=== PATIENT | male | born 1950 | race Caucasian/White ===

== ENCOUNTER → 2017-05-19 | Outpatient (CLI) | payer BC ==
[2017-05-19 14:27] LABS: BLOOD UREA NITROGEN 12 mg/dl (7-18); BUN/CREATININE RATIO 13.9 (10-20); CALCIUM 9.4 mg/dl (8.5-10.1); CARBON DIOXIDE 30 mmol/L (21-32); CHLORIDE 104 mmol/L (98-107); CREATININE 0.89 mg/dl (0.60-1.40); GLUCOSE 91 mg/dl (70-99); POTASSIUM 4.1 mmol/L (3.5-5.1); SODIUM 138 mmol/L (136-145)
--- NOTE | 2017-05-25 09:44 | CODING QUERY MEDICAL NECESSITY ---
SUPPORTING DIAGNOSIS NEEDED Dr. Chaparro, A supporting diagnosis is required for the test/procedure performed on this patient in order for us to be reimbursed by the patient's insurance. Please provide a supporting diagnosis for the following test/procedure listed below next to the test name along with your signature. *If there is no additional diagnosis for this patient that would support the following test/procedure please document that below next to the test/procedure. Test(s)/Procedure(s) that require a supporting diagnosis: * [id number] PSA DIAGNOSIS: DATE OF SERVICE: 05/19/17 Provider Signature: Date: Thank you Fadi Mendez [facility] Information Management Once completed, please kindly fax back to [phone] For questions please call [phone]
== END | disposition home or self-care (01) ==
LOC: C.LABMFLN 10:34
PROVIDERS: ATTEND Family Medicine
DX: Z00.00 Encounter for general adult medical examination without abnormal findings (principal); E29.1 Testicular hypofunction; I10 Essential (primary) hypertension; Z12.5 Encounter for screening for malignant neoplasm of prostate

== ENCOUNTER → 2017-06-30 | Outpatient (CLI) | payer BC ==
[2017-06-30 13:25] LABS: BASO % 0.1 %; BASO ABS # 0.01 K/uL (0-0.2); COMPLETE YES; EOS % 0.2 %; HEMATOCRIT 46.5 % (42-52); IG% 0.2 %; LYMPH % 15.8 %; LYMPH ABS # 2.04 K/uL (1.2-3.4); MEAN CELL VOLUME 88.4 fL (80-100); MEAN CORPUSCULAR HEMOGLOBIN 28.9 pg (25-34); MEAN CORPUSCULAR HGB CONC 32.7 g/dl (32-36); MEAN PLATELET VOLUME 10.6 fL (7.4-10.4); MONO % 4.6 %; NEUT % 79.1 %; PLATELET COUNT 274 K/uL (130-400); RED BLOOD COUNT 5.26 M/uL (4.7-6.1); WHITE BLOOD COUNT 12.94 K/uL (4.8-10.8)
[2017-06-30 14:55] LABS: LYME DISEASE AB IGG POS (NEG); LYME DISEASE AB IGM POS (NEG)
[2017-06-30 15:19] LABS: BLOOD UREA NITROGEN 12 mg/dl (7-18); CREATININE 0.92 mg/dl (0.60-1.40)
[2017-06-30 15:30] LABS: THYROID STIMULATING HORMONE 0.581 uIu/ml (0.300-4.500)
[2017-07-05 21:22] LABS: 18KDIGG BAND REACTIVE (NONREACTIVE); 23KDIGG BAND REACTIVE (NONREACTIVE); 23KDIGM BAND REACTIVE (NONREACTIVE); 28KDIGG BAND NONREACTIVE (NONREACTIVE); 30KDIGG BAND NONREACTIVE (NONREACTIVE); 39KDIGG BAND REACTIVE (NONREACTIVE); 39KDIGM BAND NONREACTIVE (NONREACTIVE); 41KDIGG BAND REACTIVE (NONREACTIVE); 41KDIGM BAND REACTIVE (NONREACTIVE); 45KDIGG BAND NONREACTIVE (NONREACTIVE); 58KDIGG BAND NONREACTIVE (NONREACTIVE); 66KDIGG BAND NONREACTIVE (NONREACTIVE); 93KDIGG BAND NONREACTIVE (NONREACTIVE)
== END | disposition home or self-care (01) ==
LOC: C.LABMFLN 08:54
PROVIDERS: ATTEND Physician Assistant
DX: H91.22 Sudden idiopathic hearing loss, left ear (principal)

== ENCOUNTER → 2017-07-06 | Outpatient (CLI) | payer BC ==
[~2017-07-06] MED LIST: GADAVIST IV PRN
--- NOTE | 2017-07-06 11:12 | DIAGNOSTIC IMAGING REPORT ---
BRAIN COMBO FOR IAC HISTORY: 67 years-old Male H91.22 Sudden left hearing loss FOR SUDDEN LEFT SIDED SNHL. COMPARISON: None available TECHNIQUE: Multiplanar multisequence MRI of the brain was obtained both with and without the use of 8.2 mL Gadavist FINDINGS: Large field of view tax services professional images demonstrate no gross abnormality. No evidence of restricted diffusion to suggest acute ischemia. Midline structures including the corpus callosum, brainstem, optic chiasm, pituitary and pineal glands are unremarkable. No cerebellar tonsillar herniation. Degenerative changes are seen at C1-C2. No acute intracranial hemorrhage, midline shift, abnormal extra-axial collections, hydrocephalus or intracranial mass identified. There is mild interval atrophy with ex vacuo ventriculomegaly. Scattered foci of focal low-attenuation within the basal ganglia suggest remote lacunar infarctions. Scattered foci of T2/FLAIR prolongation are seen within the subcortical and periventricular white matter suggesting chronic microvascular ischemic changes. Flow voids at the skull base appear normal. Orbits are symmetric. There is only minimal ethmoid sinus disease. Cerebellar pontine angles are within normal limits without associated mass. The course of the 7th and 8th cranial nerves are within normal limits bilaterally. No abnormal enhancement. Internal auditory canals appear to be within normal limits. IMPRESSION: 1. No acute intracranial abnormality. 2. No abnormal enhancement. The courses of the 7th and 8th cranial nerves appear normal bilaterally without associated mass. 3. Mild chronic microvascular ischemic changes. The above report was generated using voice recognition software. It may contain grammatical, syntax or spelling errors. Electronically signed by: Slade Stevens M.D. 07/06/2017 11:10 AM Dictated Date/Time: 07/06/2017 11:04 AM
== END | disposition home or self-care (01) ==
LOC: C.MRI 09:14
PROVIDERS: ATTEND Physician Assistant
DX: H91.22 Sudden idiopathic hearing loss, left ear (principal)

== ENCOUNTER → 2017-08-08 | Outpatient (CLI) | payer BC | END | disposition home or self-care (01) | LOC: C.LABMFLN 15:44 | PROVIDERS: ATTEND Urology | DX: R97.20 Elevated prostate specific antigen [PSA] (principal); N40.1 Benign prostatic hyperplasia with lower urinary tract symptoms ==

== ENCOUNTER → 2018-01-19 | Outpatient (CLI) | payer BC | END | disposition home or self-care (01) | LOC: C.LABMFLN 09:46 | PROVIDERS: ATTEND Urology | DX: R97.20 Elevated prostate specific antigen [PSA] (principal); N40.1 Benign prostatic hyperplasia with lower urinary tract symptoms ==

== ENCOUNTER → 2018-06-19 | Outpatient (CLI) | payer BC ==
[~2018-06-19] MED LIST changes: +AMLO2.5T PO; +BUPR200T2 PO; +CRD4 PO; +DTRSR/10 PO; +FOLI1TAB8 PO; -GADAVIST IV PRN; +HYDR-4079 PO; +LORA-741 PO; +PRLSR20 PO; +SYMIN160 INH; +VENL75CA88 PO; +VNTHFA/IN INH
[2018-06-19 11:59] LABS: BASO % 0.3 %; BASO ABS # 0.02 K/uL (0-0.2); EOS % 3.2 %; EOS ABS # 0.23 K/uL (0-0.5); HEMOGLOBIN 13.1 g/dL (14.0-18.0); IG# 0.01 K/uL (0.00-0.02); LYMPH % 30.9 %; LYMPH ABS # 2.23 K/uL (1.2-3.4); MEAN CELL VOLUME 89.2 fL (80-100); MEAN CORPUSCULAR HGB CONC 33.6 g/dl (32-36); MEAN PLATELET VOLUME 10.6 fL (7.4-10.4); MONO ABS # 0.43 K/uL (0.11-0.59); NEUT % 59.5 %; NEUT ABS # 4.29 K/uL (1.4-6.5); PLATELET COUNT 272 K/uL (130-400); RED CELL DISTRIBUTION WIDTH CV 12.9 % (11.5-14.5); WHITE BLOOD COUNT 7.21 K/uL (4.8-10.8)
--- NOTE | 2018-06-19 12:06 | DIAGNOSTIC IMAGING REPORT ---
CHEST 2 VIEWS ROUTINE CLINICAL HISTORY: Preoperative evaluation. COMPARISON STUDY: No previous studies for comparison. FINDINGS: Note is made of cholecystectomy clips. Degenerative changes of both glenohumeral joints are incidentally noted. There is no pneumothorax or pleural effusion. There is no consolidation or evidence for pulmonary edema. Cardiomediastinal silhouette is unremarkable. IMPRESSION: No acute cardiopulmonary findings. Electronically signed by: Royce Carpenter M.D. 06/19/2018 12:05 PM Dictated Date/Time: 06/19/2018 12:04 PM
[2018-06-19 12:10] LABS: PTT PATIENT 27.1 SECONDS (21.0-31.0)
[2018-06-19 12:11] LABS: ALBUMIN 3.8 gm/dl (3.4-5.0); BLOOD UREA NITROGEN 11 mg/dl (7-18); CALCIUM 8.7 mg/dl (8.5-10.1); CARBON DIOXIDE 27 mmol/L (21-32); CREATININE 0.84 mg/dl (0.60-1.40); GLUCOSE 103 mg/dl (70-99); POTASSIUM 4.4 mmol/L (3.5-5.1); SODIUM 136 mmol/L (136-145)
== END ==
LOC: C.CPL 10:54
DX: Z01.812 Encounter for preprocedural laboratory examination (principal); Z01.810 Encounter for preprocedural cardiovascular examination; Z01.818 Encounter for other preprocedural examination

== ENCOUNTER 2024-06-29 11:52 | Observation (INO) ==
--- NOTE | 2024-06-29 12:02 | Emergency Department Note ---
Impression & Plan Atrial fibrillation with rapid ventricular response, Elevated troponin ED Provider Note NAME: PEPPER MELTON AGE: 74 SEX: M : 1950 ARRIVES VIA: Ambulance INFORMANT: Patient ED PROVIDER(S): Kevin Cantor DO CHIEF COMPLAINT: Abnormal EKG HPI: Patient is a 74-year-old male with a past medical history of anemia, depression, asthma, anxiety, COPD who presents to the ER from rheumatology. He presented to their office for worsening pain in the back and hips which had been bothering him. He was found to be in A-fib with RVR. He was brought in by the medics. They did give 10 mg of Cardizem. Patient denies any headache or change in vision. No chest pain or shortness of breath. No dysuria, urgency, or frequency. No other exacerbating or remitting factors. ADDITIONAL HISTORY OBTAINED: Per HPI Chronic Medical/Social Conditions Affecting Care: Per HPI PAST MEDICAL HISTORY:See Below PAST SURGICAL HISTORY:See Below FAMILY HISTORY:See Below SOCIAL HISTORY:See Below HOME MEDICATIONS:See Below ALLERGIES:See Below VITALS:See Below PHYSICAL EXAMINATION: GENERAL: Sitting up in bed, alert, well appearing, well nourished, no distress, non-toxic EYE EXAM: normal conjunctiva. OROPHARYNX:mucous membranes are moist NECK: supple, no nuchal rigidity, no adenopathy, non-tender LUNGS: Clear to auscultation. Normal chest wall mechanics HEART: no murmurs, S1 normal and S2 normal ABDOMEN: abdomen soft, non-tender, normo-active bowel sounds, no masses, no rebound or guarding. UPPER EXTREMITIES: upper extremities are grossly normal. LOWER EXTREMITIES: No pitting edema. NEURO EXAM: Normal sensorium, cranial nerves II-XII grossly intact, normal speech, no gross weakness of arms, no gross weakness of legs. MEDICAL DECISION MAKING: Patient is a 74-year-old male who presents the ER for A-fib with RVR. I received medical command call from EMS. Patient was found to be in A-fib with RVR. Did have a reasonable blood pressure in the 120s and was given 10 mg of IV Cardizem per my direction. Upon arrival to the ER was found to be hypotensive with systolics in the 70s. Was given 2 L of IV fluids. Labs showed a mild leukocytosis of 11.7. Mild anemia at 12.7. BMP along with LFTs bilirubin and magnesium was unremarkable. Troponin was elevated at 31. Repeat trended up to 170. Lipase is unremarkable. Patient eventually converted into bigeminy. Case was discussed with the hospitalist with the elevated troponin for further evaluation management treatment although I do favor this likely rate related. Consults/Care Managements Discussions: Per MDM Triage Nursing notes reviewed. Limited review of prior medical records performed Vital Signs: reviewed and remarkable for no significant abnormalities Differential diagnosis: Cardiac ischemia, aortic dissection, pulmonary embolism, pneumothorax, pneumonia, pericarditis, myocarditis, esophageal rupture, GERD, cholecystitis, pancreatitis, musculoskeletal, as well as other pathologies. ER treatment provided: See below Diagnostics interpreted by me include EKG and cardiac monitoring as listed below: -Cardiac Monitoring: An order was placed for continuous cardiac monitoring. The monitor shows a rate of 115 with A-fib rhythm. -ECG: A-fib with RVR rate of 126 Left axis No PVCs QTc 437 -Laboratory studies:Interpreted by me as stated above in MDM and shown below. Imaging studies: Xrays: As interpreted by me: Portable AP upright 1 view of the chest shows no focal M-Trate CTs show: none Procedures:none Critical Care: None Past Med/Surg History Problem List (Updated 06/29/24 @ 15:29 by Kevin Cantor DO) Elevated troponin (Acute) Atrial fibrillation with rapid ventricular response (Acute) Atrial fibrillation with rapid ventricular response Subacromial bursitis of right shoulder joint Left thyroid nodule Long-term use of Plaquenil Opiate dependence Anemia Postherpetic neuralgia PMR (polymyalgia rheumatica) Seronegative rheumatoid arthritis Thyroid nodule Former smoker, stopped smoking in distant past Cough Encounter for monitoring chronic NSAID therapy Medicare annual wellness visit, subsequent Asthma Inflammatory arthritis Insomnia Depression Anemia (Acute) Arthritis (Acute) BPH associated with nocturia (Acute) Bigeminal rhythm (Acute) Bilateral shoulder pain (Acute) Disc degeneration, lumbar (Acute) Elevated PSA (Acute) Hypercholesterolemia (Acute) Benign essential hypertension (Acute) Left asymmetrical SNHL (Acute) 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 Osteoarthritis of both knees (Acute) Polymyalgia rheumatica (Acute) Post traumatic stress disorder (Acute) Rheumatoid arthritis (Acute) Testicular hypofunction (Acute) Anxiety and depression (Chronic) Tobacco abuse (Chronic) Actively trying to quit GERD (gastroesophageal reflux disease) (Chronic) COPD (chronic obstructive pulmonary disease) (Chronic) LAST EXACERBATION -05/2017, USES VENTOLIN, FOLLOW WITH PCP Medical History Anemia Anxiety and depression Arthritis Benign essential hypertension Bigeminal rhythm Bilateral shoulder pain BPH associated with nocturia COPD (chronic obstructive pulmonary disease) Degenerative disc disease Disc degeneration, lumbar Elevated PSA GERD (gastroesophageal reflux disease) Hx of Lyme disease Hypercholesterolemia Hyperlipidemia Left asymmetrical SNHL Osteoarthritis Polymyalgia rheumatica Post traumatic stress disorder Rheumatoid arthritis Testicular hypofunction Tobacco abuse Surgical History Hx of appendectomy Hx of arthroscopy Hx of cholecystectomy Hx of colonoscopy Status post total left knee replacement Family History Aunt Hypertension maternal aunt Cancer Brother Multiple myeloma Father Uremia Uncle Colorectal cancer Aunt Diabetes Other Essential hypertension Hypothyroidism Denies family history of Ovarian cancer Prostate cancer Myocardial infarction Breast cancer Social History (Updated 02/09/23 @ 08:59 by Aaliyah El LPN) Smoking Status: Current every day smoker Tobacco Type: Cigarettes Age Started Using Tobacco: 9; Age Quit Using Tobacco: 73; Second Hand Exposure: Yes; Do You Dip or Chew Tobacco: No; Hx Alcohol Use: Yes Alcohol type: hard liquor Alcohol Intake Frequency: Monthly or Less Alcohol Intake Frequency Comment: 4-5 X a year Hx Substance Use: No Preferred Language: Surinamese Communication Ability: Effective Visual Impairment: Limited 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 Required: No Beliefs That Will Affect Care: None marital status: Current Living Situation: Alone current occupational status: retired current occupation: [employer] Feels Safe at Home: Yes Childhood Exposure to Second-Hand Smoke: Yes (parents) Diet: regular caffeine: Yes (coffee daily) during the past year weight has: remained stable Dental Care, Regularly: Yes Physical Activity Frequency: Daily Physical Activity Frequency Comment: Yard work, tree cutting Seatbelt Use: always Sunscreen Use: No Do you think of yourself as: straight/heterosexual Gender Identity: Male Assistive Devices: Glasses Allergies Allergies Allergy/AdvReac Type Severity Reaction Status Date / Time taylor pepper [green pepper] Allergy Verified 06/29/24 10:30 quetiapine [From Seroquel] AdvReac incontenence Verified 06/29/24 10:30 urine red wine Allergy Uncoded 06/29/24 10:30 Home Meds Home Medications Medication Instructions Recorded Confirmed aspirin 81 mg tablet,delayed 81 mg PO DAILY 01/25/20 06/29/24 release fluticasone furoate 27.5 2 spray intranasal DAILY PRN 02/09/23 06/29/24 mcg/actuation nasal allergy symptoms spray,suspension budesonide-formoterol HFA 160 2 puff inhalation UD 06/29/24 06/29/24 mcg-4.5 mcg/actuation aerosol inhaler (Symbicort) hydroxychloroquine 200 mg tablet 200 mg PO UD 06/29/24 06/29/24 methotrexate sodium 2.5 mg tablet 15 mg PO UD 06/29/24 06/29/24 Previous Rx's Medication Instructions Recorded albuterol sulfate 90 mcg/actuation 2 puff inhalation Q4H PRN SOB #3 07/31/21 aerosol inhaler (Ventolin HFA) Inhalers sildenafil 100 mg tablet 100 mg PO DAILY PRN sexual 01/22/22 activity #7 tabs folic acid 1 mg tablet 1 mg PO QAM #90 tabs 04/26/23 celecoxib 200 mg capsule (Celebrex) 200 mg PO DAILY #100 caps 01/23/24 duloxetine 60 mg capsule,delayed 60 mg PO DAILY #100 caps 01/23/24 release gabapentin 300 mg capsule 300 mg PO .in am and at HS #200 01/23/24 caps lisinopril 5 mg tablet 5 mg PO DAILY #100 tabs 01/23/24 omeprazole 40 mg capsule,delayed 40 mg PO DAILY #100 caps 01/23/24 release oxybutynin chloride 10 mg 10 mg PO PM #100 tabs 01/23/24 tablet,extended release 24 hr terazosin 5 mg capsule 5 mg PO HS #100 caps 01/23/24 venlafaxine 75 mg capsule,extended 75 mg PO DAILY #100 caps 01/23/24 release 24 hr Results & Data (ED) Vital Signs Vital Signs - 24 hr 06/29/24 12:00 06/29/24 12:00 06/29/24 12:00 Temperature 36.8 C Temperature Source Oral Pulse Rate 121 H 121 H Pulse Rate from SpO2 Sensor Pulse Rhythm Irregular Irregular Pulse Strength Normal Respiratory Rate 20 20 Respiratory Effort / Characteristics Non-Labored Respiratory Depth Normal Respiratory Pattern Regular Blood Pressure 88/70 L Blood Pressure Mean 76 Blood Pressure Position Lying Pulse Oximetry 95 95 Oxygen Delivery Method Room Air Room Air Room Air Sepsis Recent Fever Within 48 Hours No Sepsis New/Unexplained Change in Mental Status No Sepsis Action Taken by Nursing Physician Notified 06/29/24 12:30 06/29/24 12:30 06/29/24 12:33 Temperature Temperature Source Pulse Rate 101 H Pulse Rate from SpO2 Sensor 99 H Pulse Rhythm Pulse Strength Respiratory Rate 22 Respiratory Effort / Characteristics Respiratory Depth Respiratory Pattern Blood Pressure 102/67 102/67 Blood Pressure Mean 71 71 Blood Pressure Position Pulse Oximetry 93 Oxygen Delivery Method Sepsis Recent Fever Within 48 Hours Sepsis New/Unexplained Change in Mental Status Sepsis Action Taken by Nursing 06/29/24 12:45 06/29/24 12:45 06/29/24 12:47 Temperature Temperature Source Pulse Rate 74 99 H Pulse Rate from SpO2 Sensor 73 Pulse Rhythm Pulse Strength Respiratory Rate 16 Respiratory Effort / Characteristics Respiratory Depth Respiratory Pattern Blood Pressure 92/57 L Blood Pressure Mean 66 Blood Pressure Position Pulse Oximetry 94 Oxygen Delivery Method Room Air Sepsis Recent Fever Within 48 Hours Sepsis New/Unexplained Change in Mental Status Sepsis Action Taken by Nursing Laboratory Data 06/29/24 12:00 06/29/24 12:00 Lab Results 06/29/24 06/29/24 Range/Units 12:00 13:42 WBC 11.73 H (4.8-10.8) K/ul RBC 4.34 L (4.70-6.10) M/uL Hgb 12.7 L (14.0-18.0) g/dl Hct 38.8 L (42.0-52.0) % MCV 89.4 (80.0-100.0) fL MCH 29.3 (25.0-34.0) pg MCHC 32.7 (32.0-36.0) g/dL RDW Std Deviation 44.5 (36.4-46.3) fL RDW Coeff of Sue 13.6 (11.5-14.5) % Plt Count 257 (130-400) K/uL MPV 11.3 (9.4-12.4) fL Immature Gran % (Auto) 0.3 % Neut % (Auto) 73.2 % Lymph % (Auto) 15.4 % Wheeler % (Auto) 8.3 % Eos % (Auto) 2.5 % Baso % (Auto) 0.3 % Neut # (Auto) 8.59 H (1.40-6.50) K/uL Lymph # (Auto) 1.81 (1.20-3.40) K/uL Wheeler # (Auto) 0.97 H (0.11-0.59) K/uL Eos # (Auto) 0.29 (0.00-0.50) K/uL Baso # (Auto) 0.03 (0.00-0.20) K/uL Immature Gran # (Auto) 0.04 (0.01-0.20) K/uL Sodium 138 (136-145) mmol/L Potassium 4.4 (3.5-5.1) mmol/L Chloride 107 (98-107) mmol/L Carbon Dioxide 26 (21-32) mmol/L Anion Gap 5 (3-11) BUN 10 (6-23) mg/dl Creatinine 0.82 (0.6-1.4) mg/dl Est Cr Clr Drug Dosing 83.2 ml/min Est GFR ( Amer) 101.0 ml/min Est GFR (Non-Af Amer) 87.1 ml/min BUN/Creatinine Ratio 12.2 (10-20) Glucose 112 H (70-99(Fasting)) mg/dl Calcium 9.1 (8.6-10.3) mg/dl Magnesium 1.8 (1.7-2.4) mg/dl Total Bilirubin 0.5 (0.2-1.0) mg/dl AST 14 (13-39) U/L ALT 9 (7-52) U/L Alkaline Phosphatase 72 (34-104) U/L Troponin I High Sens 31.5 H 173.8 H* D (0-20) pg/ml Total Protein 5.6 L (6.0-8.3) gm/dl Albumin 3.5 (3.4-5.0) gm/dl Globulin 2.1 L (2.5-4.0) gm/dl Albumin/Globulin Ratio 1.7 (0.9-2) Lipase 3 L (11-82) U/L Lyme Disease Screen Equivocal H (Negative) Lyme Tier 2 IgG Confirm Equivocal H (Negative) Lyme Tier 2 IgM Confirm Positive H (Negative) Administered Medications Discontinued Medications Sodium Chloride (Nss) 1,000 mls @ 999 mls/hr IV .Q1H1M TWYLA Stop: 06/29/24 14:45 Last Infusion: 06/29/24 14:32 Dose: Infused Documented By: Admin: 06/29/24 13:37 Dose: 999 mls/hr Documented By: Infusion: 06/29/24 13:37 Dose: Infused Documented By: Admin: 06/29/24 12:50 Dose: 999 mls/hr Documented By: SRGretchen Imaging Data Radiologist's Impression: Chest X-Ray 06/29/24 12:00 XR chest 1V portable CLINICAL HISTORY: Chest pain, nonspecific TECHNIQUE: Single frontal radiograph of the chest was obtained. Comparison: None available at the time of this dictation. FINDINGS: No lines and tubes are seen. Calcified aortic knob is seen. The lungs are clear. No evidence of pleural effusion or pneumothorax. IMPRESSION: No acute chest disease. ACT 112: Negative or not required by law. Electronically signed by: Cristino Green M.D. 06/29/2024 12:27 PM Discharge Plan Visit Data Chief Complaint: Cardiac Assessment ED Provider: Kevin Cantor Discharge Problem: Atrial fibrillation with rapid ventricular response, Elevated troponin Forms Stand Alone Forms: [facility] Prescriptions Prescriptions: No Action folic acid 1 mg tablet 1 mg PO QAM Qty: 90 3RF Rx Instructions: otc, no fill history aspirin 81 mg tablet,delayed release (DR/EC) 81 mg PO DAILY Rx Instructions: otc albuterol sulfate [Ventolin HFA] 90 mcg/actuation HFA aerosol inhaler 2 puff INHALATION Q4H PRN (Reason: SOB) Qty: 3 3RF Rx Instructions: no fill history available fluticasone furoate 27.5 mcg/actuation spray,suspension 2 spray intranasal DAILY PRN (Reason: allergy symptoms) Rx Instructions: into each nostril sildenafil 100 mg tablet 100 mg PO DAILY PRN (Reason: sexual activity) Qty: 7 2RF Rx Instructions: No fill history available administer 30 minutes to 4 hours before activity duloxetine 60 mg capsule,delayed release(DR/EC) 60 mg PO DAILY Qty: 100 2RF venlafaxine 75 mg capsule,extended release 24hr 75 mg PO DAILY Qty: 100 3RF gabapentin 300 mg capsule 300 mg PO .in am and at HS Qty: 200 3RF celecoxib [Celebrex] 200 mg capsule 200 mg PO DAILY Qty: 100 3RF lisinopril 5 mg tablet 5 mg PO DAILY Qty: 100 3RF omeprazole 40 mg capsule,delayed release(DR/EC) 40 mg PO DAILY Qty: 100 3RF terazosin 5 mg capsule 5 mg PO HS Qty: 100 2RF oxybutynin chloride 10 mg tablet extended release 24hr 10 mg PO PM Qty: 100 2RF methotrexate sodium 2.5 mg tablet 15 mg PO UD Rx Instructions: 15 mg po q7d last filled 02/13/24 for 84 day supply hydroxychloroquine 200 mg tablet 200 mg PO UD Rx Instructions: 200 mg po daily last filed 03/21/24 for 90 day supply budesonide-formoterol [Symbicort] 160-4.5 mcg/actuation HFA aerosol inhaler 2 puff inhalation UD Rx Instructions: 2 puff inhalation bid last filled 01/24/24 for 60 day supply needs to be brand per insurance for coverage. Referrals Referrals: Nikolas Chaparro MD [Primary Care Provider] -
--- NOTE | 2024-06-29 12:29 | XRay Report ---
XR chest 1V portable CLINICAL HISTORY: Chest pain, nonspecific TECHNIQUE: Single frontal radiograph of the chest was obtained. Comparison: None available at the time of this dictation. FINDINGS: No lines and tubes are seen. Calcified aortic knob is seen. The lungs are clear. No evidence of pleur al effusion or pneumothorax. IMPRESSION: No acute chest disease. ACT 112: Negative or not required by law. Electronically signed by: Cristino Green M.D. 06/29/2024 12:27 PM
[2024-06-29 12:35] LABS: Albumin Globulin Ratio 1.7 (0.9-2); Albumin Level 3.5 gm/dl (3.4-5.0); BUN Creatinine Ratio 12.2 (10-20); Bilirubin,Total 0.5 mg/dl (0.2-1.0); Calcium 9.1 mg/dl (8.6-10.3); Creatinine Clr Calc Pharmacy 83.2 ml/min; Est GFR (Non-African American) 87.1 ml/min; Globulin 2.1 gm/dl (2.5-4.0); Potassium 4.4 mmol/L (3.5-5.1); Total Protein 5.6 gm/dl (6.0-8.3)
[2024-06-29 12:41] LABS: Troponin I High Sensitivity 31.5 pg/ml (0-20)
[2024-06-29] MEDS: SODIUM CHLORIDE 0.9% 1,000 ML IV SCH (12:50)
[2024-06-29 12:52] LABS: Basophils # (auto) 0.03 K/uL (0.00-0.20); Basophils % (auto) 0.3 %; Eosinophils # (auto) 0.29 K/uL (0.00-0.50); Eosinophils % (auto) 2.5 %; Hematocrit (blood only) 38.8 % (42.0-52.0); Hemoglobin 12.7 g/dl (14.0-18.0); Immature Granulocytes # (auto) 0.04 K/uL (0.01-0.20); Immature Granulocytes % (auto) 0.3 %; Lymphocytes # (auto) 1.81 K/uL (1.20-3.40); Lymphocytes % (auto) 15.4 %; Mean Corpuscular Hemoglobin 29.3 pg (25.0-34.0); Mean Corpuscular Hgb Conc 32.7 g/dL (32.0-36.0); Mean Corpuscular Volume 89.4 fL (80.0-100.0); Mean Platelet Volume 11.3 fL (9.4-12.4); Monocytes # (auto) 0.97 K/uL (0.11-0.59); Monocytes % (auto) 8.3 %; Neutrophils # (auto) 8.59 K/uL (1.40-6.50); Neutrophils % (auto) 73.2 %; Platelet Count 257 K/uL (130-400); RDW Coefficient of Variation 13.6 % (11.5-14.5); RDW Standard Deviation 44.5 fL (36.4-46.3); Red Blood Count 4.34 M/uL (4.70-6.10); White Blood Count 11.73 K/ul (4.8-10.8)
--- NOTE | 2024-06-29 13:09 | History & Physical Report ---
Date of Service June 29, 2024 Assessment & Plan (1) Atrial fibrillation with rapid ventricular response: Plan: Atrial fibrillation with RVR, converted to bigeminy First episode, no prior history of A-fib Drinks alcohol around once a month, was at a camp this past week and had about 5 drinks Tuesday/Tuesday, no alcohol since that time. No history of sleep apnea. Has had Lyme disease in the past, which had been treated with doxycycline. Again was recently camping with multiple insect bites. No heart block, CO is not prolonged after conversion to sinus While in the ER and following metoprolol patient converted to sinus, alternating with intermittent PVCs and occasionally with bigeminy. Troponin 31.5, no chest pain. 2-hour repeat 173. Trended every 6 hours. Remains without chest pain Echo pending Started on metoprolol tartrate twice daily [id number] 2 points, anticoagulation is indicated. Given uptrending trop and midday presentation will start on heparin gtt, and schedule for conversion to eliquis AM 06/30. Patient agreeable, notes he had a cousin that passed from a stroke and he would like to take any medications that could reduce his own risk of stroke Patient lives near [place] and has difficulty coming to [facility] at times for appointments. Notes that this also has a large amount of stress. Would prefer to follow-up with [facility] cardiology in [place] if possible. Consulted, reviewed case and is having follow-up appointment coordinated. - Eliquis started - Mg 1.8, magox x1 given. Optimize to goal 2.0, K 4.0 (2) Lyme disease: Plan: Lyme disease Patient with past history of Lyme, recently camping with multiple insect bites Lyme screen equivocal. IgG likely to be positive due to past infection, IgM is + suggesting recent/recurrent infection Given equivocal acute screen will start on doxycycline every 12 hours. CO is not prolonged, Rocephin deferred Leukocytosis is elevated. Does have chronic joint pain. Denies respi ratory/GI symptoms. Neutrophilic predominant, but without left shift. (3) Degenerative disc disease: Plan: Low back pain Patient with worsening pain when walking, stooped posture, and increasing bilateral hip pain. Notes that he was able to walk several miles while at camp and actually felt good and without pain. No lower extremity weakness. No sensory deficits No indication for emergent MRI at time of admit No saddle anesthesia, bowel/bladder incontinence/retention, and robust 5/5 strength on exam. May obtain MRI routine, or as outpt (4) Rheumatoid arthritis: Plan: Rheumatoid arthritis Has been off methotrexate for 2 to 3 weeks, this remains held on admission Back pain is separate from this and will be evaluated as above. May continue outpatient follow-up for his rheumatoid Celebrex held in anticipation of anticoagulation needs Plan Chronic stable issues Depression: Continue Effexor/Trintellix Hyperlipidemia: Diet controlled BPH with nocturia: Continue home medicines, bladder scan as needed Asthma: No acute exacerbation, continue inhalers DVT prophylaxis: Heparin with transition to Eliquis 06/30 CODE STATUS: Full code Disposition: PCU due to RVR History of Present Illness Primary Care Provider: Nikolas Chaparro MD Eugenio is a 74-year-old male with a past medical history of rheumatoid arthritis, PMR, asthma, depression, hypertension, GERD who was seen for an acute visit by rheumatology for low back/hip discomfort gradually increasing over the last few months. While in the the office was noted to have A-fib with suspected RVR, in office blood pressure showed systolic as low 78/52 and patient was referred to the hospital by ambulance for treatment of A-fib with RVR. Presents on referral from rheumatology office for irregular heart rhythm with RVR. No prior history of A-fib. Had some arrythmia during a colonoscopy while in [facility]. THis was ~7 years ago. no other arrythemia No chest pain, no chest pressure, no syncope. 'May just a tad lightheaded when standing once today but no dizziness and I feel fine' Takes baby aspirin daily 81mg as primary prevention. No hx NM, CAD, or strokes No history of DM Hx HTN well controlled to borderline per pt, drops into a normal range as long as he is allowed to relax for 5-10 minutes prior to checking, no longed checks at home. takes lisinopril. Feels very fatigued in the morning, rescued a dog and gets him up earlier than he would like. Typically sleps 12-5pm. If he does get 8-9 hours of sleep he feels rested. NO snoring. No hx sleep apnea. Was at camp this past weekend, had multiple insect bites. Drinks alcohol over the weekend, none in the last 6 days. Medical History: Reviewed Medications: Reviewed. Took all meds this AM. Surgical History: Reviewed. Hx appendectomy, L knee replacement, cholecystectomy. Family history: Reviewed Allergies: Reviewed. Denies med allergies Social History: Drinks ETOH ~once a month, ~5 in a sitting if he does drink. Last drink Tuesday/Tuesday. Current smoker, 1/2ppd. Marijuana gummies intermittently which has replaced back pain medication. Works well for him, much better than opiods. Code Status:Full Allergies Allergy/AdvReac Type Severity Reaction Status Date / Time taylor pepper [green pepper] Allergy Verified 06/29/24 10:30 quetiapine [From Seroquel] AdvReac incontenence Verified 06/29/24 10:30 urine red wine Allergy Uncoded 06/29/24 10:30 Home Medications Medication Instructions Recorded Confirmed Type aspirin 81 mg tablet,delayed 81 mg PO DAILY 01/25/20 06/29/24 History release albuterol sulfate 90 mcg/actuation 2 puff inhalation Q4H PRN SOB #3 07/31/21 06/29/24 Rx aerosol inhaler (Ventolin HFA) Inhalers sildenafil 100 mg tablet 100 mg PO DAILY PRN sexual 01/22/22 06/29/24 Rx activity #7 tabs fluticasone furoate 27.5 2 spray intranasal DAILY PRN 02/09/23 06/29/24 History mcg/actuation nasal allergy symptoms spray,suspension folic acid 1 mg tablet 1 mg PO QAM #90 tabs 04/26/23 06/29/24 Rx celecoxib 200 mg capsule (Celebrex) 200 mg PO DAILY #100 caps 01/23/24 06/29/24 Rx duloxetine 60 mg capsule,delayed 60 mg PO DAILY #100 caps 01/23/24 06/29/24 Rx release gabapentin 300 mg capsule 300 mg PO .in am and at HS #200 01/23/24 06/29/24 Rx caps lisinopril 5 mg tablet 5 mg PO DAILY #100 tabs 01/23/24 06/29/24 Rx omeprazole 40 mg capsule,delayed 40 mg PO DAILY #100 caps 01/23/24 06/29/24 Rx release oxybutynin chloride 10 mg 10 mg PO PM #100 tabs 01/23/24 06/29/24 Rx tablet,extended release 24 hr terazosin 5 mg capsule 5 mg PO HS #100 caps 01/23/24 06/29/24 Rx venlafaxine 75 mg capsule,extended 75 mg PO DAILY #100 caps 01/23/24 06/29/24 Rx release 24 hr budesonide-formoterol HFA 160 2 puff inhalation UD 06/29/24 06/29/24 History mcg-4.5 mcg/actuation aerosol inhaler (Symbicort) hydroxychloroquine 200 mg tablet 200 mg PO UD 06/29/24 06/29/24 History methotrexate sodium 2.5 mg tablet 15 mg PO UD 06/29/24 06/29/24 History Past Med/Surg History Problem List (Updated 06/29/24 @ 12:33 by Kevni Cantor DO) Atrial fibrillation with rapid ventricular response (Acute) Atrial fibrillation with rapid ventricular response Subacromial bursitis of right shoulder joint Left thyroid nodule Long-term use of Plaquenil Opiate dependence Anemia Postherpetic neuralgia PMR (polymyalgia rheumatica) Seronegative rheumatoid arthritis Thyroid nodule Former smoker, stopped smoking in distant past Cough Encounter for monitoring chronic NSAID therapy Medicare annual wellness visit, subsequent Asthma Inflammatory arthritis Insomnia Depression Anemia (Acute) Arthritis (Acute) BPH associated with nocturia (Acute) Bigeminal rhythm (Acute) Bilateral shoulder pain (Acute) Disc degeneration, lumbar (Acute) Elevated PSA (Acute) Hypercholesterolemia (Acute) Benign essential hypertension (Acute) Left asymmetrical SNHL (Acute) 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 Osteoarthritis of both knees (Acute) Polymyalgia rheumatica (Acute) Post traumatic stress disorder (Acute) Rheumatoid arthritis (Acute) Testicular hypofunction (Acute) Anxiety and depression (Chronic) Tobacco abuse (Chronic) Actively trying to quit GERD (gastroesophageal reflux disease) (Chronic) COPD (chronic obstructive pulmonary disease) (Chronic) LAST EXACERBATION -05/2017, USES VENTOLIN, FOLLOW WITH PCP Medical History Anemia Anxiety and depression Arthritis Benign essential hypertension Bigeminal rhythm Bilateral shoulder pain BPH associated with nocturia COPD (chronic obstructive pulmonary disease) Degenerative disc disease Disc degeneration, lumbar Elevated PSA GERD (gastroesophageal reflux disease) Hx of Lyme disease Hypercholesterolemia Hyperlipidemia Left asymmetrical SNHL Osteoarthritis Polymyalgia rheumatica Post traumatic stress disorder Rheumatoid arthritis Testicular hypofunction Tobacco abuse Surgical History Hx of appendectomy Hx of arthroscopy Hx of cholecystectomy Hx of colonoscopy Status post total left knee replacement Family History Aunt Hypertension maternal aunt Cancer Brother Multiple myeloma Father Uremia Uncle Colorectal cancer Aunt Diabetes Other Essential hypertension Hypothyroidism Denies family history of Ovarian cancer Prostate cancer Myocardial infarction Breast cancer Social History (Updated 02/09/23 @ 08:59 by Aaliyah El LPN) Smoking Status: Current every day smoker Tobacco Type: Cigarettes Age Started Using Tobacco: 9; Age Quit Using Tobacco: 73; Second Hand Exposure: Yes; Do You Dip or Chew Tobacco: No; Hx Alcohol Use: Yes Alcohol type: hard liquor Alcohol Intake Frequency: Monthly or Less Alcohol Intake Frequency Comment: 4-5 X a year Hx Substance Use: No Preferred Language: Wallisian Communication Ability: Effective Visual Impairment: Limited Hearing Ability: [employer] Director Required: No Beliefs That Will Affect Care: None marital status: Current Living Situation: Alone current occupational status: retired current occupation: [employer] Feels Safe at Home: Yes Childhood Exposure to Second-Hand Smoke: Yes (parents) Diet: regular caffeine: Yes (coffee daily) during the past year weight has: remained stable Dental Care, Regularly: Yes Physical Activity Frequency: Daily Physical Activity Frequency Comment: Yard work, tree cutting Seatbelt Use: always Sunscreen Use: No Do you think of yourself as: straight/heterosexual Gender Identity: Male Assistive Devices: Glasses Physical Exam Physical Exam: General: A&Ox3. NAD. Cooperative. HEENT: Atraumatic, normocephalic. BESSY. EoM intact. Pulm: CTAB A&P. -wheezes, -rales, -rhonchi. Symmetrical chest rise. No increased work of breathing. No respiratory distress. Cardiac. Regular at time of assessment. -mrg Radial pulses intact and symmetrical. Abdominal: Nontender, nondistended, soft. BS present. Ext: no edema Results & Data Results & Data Vital Signs (Past 12 Hours) Vital Signs Temp Pulse Resp BP Pulse Ox O2 Del Method 06/29/24 12:47 99 H 06/29/24 12:45 92/57 L 06/29/24 12:45 74 16 94 Room Air 06/29/24 12:33 101 H 22 93 06/29/24 12:30 102/67 06/29/24 12:30 102/67 06/29/24 12:00 121 H 20 95 Room Air 06/29/24 12:00 Room Air 06/29/24 12:00 36.8 C 121 H 20 88/70 L 95 Room Air PG Care Time/CCT Total # of Minutes Spent Total Time Spent with Patient: Total time spent is greater than 50% in coordination of care (as documented) at patient's floor/unit and/or counseling patient: Coding Level of Care Code 09232 INT INP/OBS CARE 3/75MIN Diagnoses Atrial fibrillation with rapid ventricular response I48.91 Lyme disease A69.20 Degenerative disc disease Rheumatoid arthritis M06.9
[2024-06-29 14:15] LABS: Lyme Screen Rflx Confirmation Equivocal (Negative); Magnesium 1.8 mg/dl (1.7-2.4)
[2024-06-29 14:49] LABS: Lyme Ab IgG 2nd Tier Confirm Equivocal (Negative); Lyme Ab IgM 2nd Tier Confirm Positive (Negative)
[2024-06-29] MEDS: DOXYCYCLINE HYCLATE 100 MG in DEXTROSE 5% MINI-B 100 ML IV ONE (15:32)
[2024-06-29] MEDS: MAGNESIUM OXIDE 400 MG TAB PO ONE (15:32)
--- NOTE | 2024-06-29 15:32 | Electrocardiogram Report ---
Test Reason : Blood Pressure : */* mmHG Vent. Rate : 126 BPM Atrial Rate : * BPM P-R Int : * ms QRS Dur : 66 ms QT Int : 302 ms P-R-T Axes : * -25 22 degrees QTcB Int : 437 ms Atrial fibrillation with rapid ventricular response Inferior infarct , age undetermined Abnormal ECG When compared with ECG of 19-Jun-2018 11:32, Atrial fibrillation has replaced Sinus rhythm Vent. rate has increased by 50 bpm Inferior infarct is now Present Confirmed by Ronald Crum ([id number]) on 06/29/2024 3:32:17 PM Referred By: REFERRED SELF Confirmed By: Ronald Crum
--- NOTE | 2024-06-29 15:33 | Electrocardiogram Report ---
Test Reason : Blood Pressure : */* mmHG Vent. Rate : 74 BPM Atrial Rate : 74 BPM P-R Int : 158 ms QRS Dur : 76 ms QT Int : 376 ms P-R-T Axes : 23 -13 28 degrees QTcB Int : 417 ms Sinus rhythm with frequent Premature ventricular complexes and Premature atrial complexes Otherwise normal ECG When compared with ECG of 29-Jun-2024 11:58, (unconfirmed) Sinus rhythm has replaced Atrial fibrillation Vent. rate has decreased by 52 bpm Confirmed by Ronald Crum ([id number]) on 06/29/2024 3:33:10 PM Referred By: REFERRED SELF Confirmed By: Ronald Crum
--- NOTE | 2024-06-29 15:46 | Cardiology Consultation ---
Date of Consultation June 29, 2024 Assessment & Plan (1) Atrial fibrillation with rapid ventricular response: (2) Elevated troponin: Plan 74-year-old male referred after presenting for routine rheumatology appointment noting recent increase in lower back pain. On examination found to be in atrial fibrillation with rapid ventricular response Has converted to sinus rhythm with single dose IV diltiazem. EKG postconversion frequent ventricular ectopy and bigeminy. No ST segment abnormalities or acute infarct pattern Troponins mildly elevated likely secondary to acute demand Patient completely asymptomatic Echocardiogram with preserved LV systolic function [id number] score of 2+ Recommendations: As planned observe with IV anticoagulation with heparin. Discussed long-term anticoagulation with patient who is willing Add low-dose beta-alpesh to regimen as ordered EKG in a.m. Outpatient evaluation unless further evolution in EKGs or troponins Patient request cardiology Christine Jaramillo will contact office to begin appointment arranged History of Present Illness Reason for Consultation: New onset atrial fibrillation Requesting Physician: Dr. Elliott Attending Physician: Patient is a 74-year-old male without prior documented cardiac disease. Patient is followed routinely for issues as below 1. Seronegative rheumatoid arthritis 2. Hypertension 3. Chronic obstructive lung disease/tobacco use Patient denies prior history of rheumatic fever scarlet fever or heart murmur. Notes having been told during colonoscopy at 1 point in time having had irregular heartbeats but otherwise no history of arrhythmias. No history of TIA or stroke. Patient is not diabetic. Recent complaints of worsening back pain limiting activity. Sought evaluation for complaints through her rheumatology today but found to be in atrial fibrillation with rapid response. Patient referred to the emergency room where rhythm converted to sinus rhythm with single dose IV diltiazem. Patient transiently hypotensive post ministration and subsequently spontaneously converted to sinus rhythm with frequent ventricular ectopy and bigeminy Patient not aware of arrhythmia denied any sense of tachypalpitations. Did feel somewhat dizzy or lightheaded after ER evaluation. No chest pains Denies recent fevers chills unexplained infections. No bleeding issues melena medic easier dysuria hematuria Modestly active about home limited by arthritic issues but usually able to walk at least 1 mile per day Denies history of TIA or stroke 1/2 pack/day smoker Appetite and weight stable no acute weight loss or gain. No edema. Allergies Allergy/AdvReac Type Severity Reaction Status Date / Time taylor pepper [green pepper] Allergy Verified 06/29/24 10:30 quetiapine [From Seroquel] AdvReac incontenence Verified 06/29/24 10:30 urine red wine Allergy Uncoded 06/29/24 10:30 Home Medications Medication Instructions Recorded Confirmed Type aspirin 81 mg tablet,delayed 81 mg PO DAILY 01/25/20 06/29/24 History release albuterol sulfate 90 mcg/actuation 2 puff inhalation Q4H PRN SOB #3 07/31/21 06/29/24 Rx aerosol inhaler (Ventolin HFA) Inhalers sildenafil 100 mg tablet 100 mg PO DAILY PRN sexual 01/22/22 06/29/24 Rx activity #7 tabs fluticasone furoate 27.5 2 spray intranasal DAILY PRN 02/09/23 06/29/24 History mcg/actuation nasal allergy symptoms spray,suspension folic acid 1 mg tablet 1 mg PO QAM #90 tabs 04/26/23 06/29/24 Rx celecoxib 200 mg capsule (Celebrex) 200 mg PO DAILY #100 caps 01/23/24 06/29/24 Rx duloxetine 60 mg capsule,delayed 60 mg PO DAILY #100 caps 01/23/24 06/29/24 Rx release gabapentin 300 mg capsule 300 mg PO .in am and at HS #200 01/23/24 06/29/24 Rx caps lisinopril 5 mg tablet 5 mg PO DAILY #100 tabs 01/23/24 06/29/24 Rx omeprazole 40 mg capsule,delayed 40 mg PO DAILY #100 caps 01/23/24 06/29/24 Rx release oxybutynin chloride 10 mg 10 mg PO PM #100 tabs 01/23/24 06/29/24 Rx tablet,extended release 24 hr terazosin 5 mg capsule 5 mg PO HS #100 caps 01/23/24 06/29/24 Rx venlafaxine 75 mg capsule,extended 75 mg PO DAILY #100 caps 01/23/24 06/29/24 Rx release 24 hr budesonide-formoterol HFA 160 2 puff inhalation UD 06/29/24 06/29/24 History mcg-4.5 mcg/actuation aerosol inhaler (Symbicort) hydroxychloroquine 200 mg tablet 200 mg PO UD 06/29/24 06/29/24 History methotrexate sodium 2.5 mg tablet 15 mg PO UD 06/29/24 06/29/24 History Patient History Medical History Anemia Anxiety and depression Arthritis Benign essential hypertension Bigeminal rhythm Bilateral shoulder pain BPH associated with nocturia COPD (chronic obstructive pulmonary disease) Degenerative disc disease Disc degeneration, lumbar Elevated PSA GERD (gastroesophageal reflux disease) Hx of Lyme disease Hypercholesterolemia Hyperlipidemia Left asymmetrical SNHL Osteoarthritis Polymyalgia rheumatica Post traumatic stress disorder Rheumatoid arthritis Testicular hypofunction Tobacco abuse Surgical History Hx of appendectomy Hx of arthroscopy Hx of cholecystectomy Hx of colonoscopy Status post total left knee replacement Family History Aunt Hypertension maternal aunt Cancer Brother Multiple myeloma Father Uremia Uncle Colorectal cancer Aunt Diabetes Other Essential hypertension Hypothyroidism Denies family history of Ovarian cancer Prostate cancer Myocardial infarction Breast cancer Social History (Updated 02/09/23 @ 08:59 by Aaliyah El LPN) Smoking Status: Current every day smoker Tobacco Type: Cigarettes Age Started Using Tobacco: 9; Age Quit Using Tobacco: 73; Second Hand Exposure: Yes; Do You Dip or Chew Tobacco: No; Hx Alcohol Use: Yes Alcohol type: hard liquor Alcohol Intake Frequency: Monthly or Less Alcohol Intake Frequency Comment: 4-5 X a year Hx Substance Use: No Preferred Language: Finnish Communication Ability: Effective Visual Impairment: Limited Hearing Ability: Magazine Feeder Required: No Beliefs That Will Affect Care: None marital status: Current Living Situation: Alone current occupational status: retired current occupation: [employer] Feels Safe at Home: Yes Childhood Exposure to Second-Hand Smoke: Yes (parents) Diet: regular caffeine: Yes (coffee daily) during the past year weight has: remained stable Dental Care, Regularly: Yes Physical Activity Frequency: Daily Physical Activity Frequency Comment: Yard work, tree cutting Seatbelt Use: always Sunscreen Use: No Do you think of yourself as: straight/heterosexual Gender Identity: Male Assistive Devices: Glasses Review of Systems Review of Systems: All systems reviewed & are unremarkable except as noted in HPI & below Physical Exam Constitutional: WD/WN, vitals as above no acute distress Eyes: PERRL, conjunctivae normal, anicteric sclerae ENMT: external ear and nose normal, oropharynx normal Neck: trachea midline, no thyromegaly Respiratory: normal respiratory effort, lungs clear to auscultation Auscultation: + diminished lung sounds Cardiovascular: Rate/Rhythm: regular rate and regular rhythm Heart Sounds: + murmur (Grade 1/6 systolic murmur right upper sternal border and apex no diastolic) Vessels: no JVD Extremities: no edema Gastrointestinal (Abdomen): normal bowel sounds, soft, nontender, no hepatosplenomegaly Musculoskeletal: no cyanosis or clubbing, extremities motor strength 5/5 Results & Data Vital Signs (Past 12 Hours) Vital Signs Temp Pulse Resp BP Pulse Ox O2 Del Method 06/29/24 12:47 99 H 06/29/24 12:45 92/57 L 06/29/24 12:45 74 16 94 Room Air 06/29/24 12:33 101 H 22 93 06/29/24 12:30 102/67 06/29/24 12:30 102/67 06/29/24 12:00 121 H 20 95 Room Air 06/29/24 12:00 Room Air 06/29/24 12:00 36.8 C 121 H 20 88/70 L 95 Room Air Laboratory Results Laboratory Results - last 24 hr 06/29/24 06/29/24 12:00 13:42 WBC 11.73 H RBC 4.34 L Hgb 12.7 L Hct 38.8 L MCV 89.4 MCH 29.3 MCHC 32.7 RDW Std Deviation 44.5 RDW Coeff of Sue 13.6 Plt Count 257 MPV 11.3 Immature Gran % (Auto) 0.3 Neut % (Auto) 73.2 Lymph % (Auto) 15.4 Cooke % (Auto) 8.3 Eos % (Auto) 2.5 Baso % (Auto) 0.3 Neut # (Auto) 8.59 H Lymph # (Auto) 1.81 [place]oke # (Auto) 0.97 H Eos # (Auto) 0.29 Baso # (Auto) 0.03 Immature Gran # (Auto) 0.04 Sodium 138 Potassium 4.4 Chloride 107 Carbon Dioxide 26 Anion Gap 5 BUN 10 Creatinine 0.82 Est Cr Clr Drug Dosing 83.2 Est GFR ( Amer) 101.0 Est GFR (Non-Af Amer) 87.1 BUN/Creatinine Ratio 12.2 Glucose 112 H Calcium 9.1 Magnesium 1.8 Total Bilirubin 0.5 AST 14 ALT 9 Alkaline Phosphatase 72 Troponin I High Sens 31.5 H 173.8 H* D Total Protein 5.6 L Albumin 3.5 Globulin 2.1 L Albumin/Globulin Ratio 1.7 Lipase 3 L Lyme Disease Screen Equivocal H Lyme Tier 2 IgG Confirm Equivocal H Lyme Tier 2 IgM Confirm Positive H Diagnostic Findings Echocardiogram 06/29/2024 Normal left exercise with moderate left ventricular hypertrophy. Normal wall motion EF 65% or greater. Mild dyssynergy due to frequent ventricular ectopy Aortic sclerosis without stenosis Mitral valve anatomy appears normal with moderate mitral insufficiency and a central and eccentric directed jet. No distinct prolapse No evidence of wall motion abnormality or pulmonary hypertension ECG Additional Comments: EKG on presentation atrial fibrillation with rapid ventricular response, rate 126 bpm, borderline criteria for inferior infarct EKG post conversion to sinus rhythm: Sinus rhythm, rate 74 bpm with frequent ventricular ectopy. Criteria for inferior infarct no longer present
[2024-06-29] MEDS: Heparin IV Adult Wt-Based Low-Dose *NO* INITIAL Bolus Protocol IV STA (16:01)
[2024-06-29] MEDS: HEPARIN SODIUM/DEXTROSE 25,000 UNITS/500 ML BAG IV SCH (16:18)
[2024-06-29] MEDS ORDERED: GABAPENTIN 300 MG CAP PO PRN (17:30)
[2024-06-29] MEDS ORDERED: ALBUTEROL HFA 8 GM INHALER INH PRN (17:30)
[2024-06-29] MEDS ORDERED: ACETAMINOPHEN 325 MG TAB PO PRN (17:30)
[2024-06-29] MEDS: NICOTINE 14 MG/24 HR PATCH TD SCH (19:30)
[2024-06-29] MEDS: TERAZOSIN HCL 5 MG CAP PO SCH (20:47)
[2024-06-29] MEDS: OXYBUTYNIN CHLORIDE XL 5 MG TABCR PO SCH (20:47)
[2024-06-29] MEDS: METOPROLOL TARTRATE 25 MG TAB PO SCH (20:47)
[2024-06-29 21:03] LABS: Prothrombin Time 11.2 Seconds (9.0-12.0)
[2024-06-29 22:55] VITALS: RESP 18
[2024-06-30 01:35] LABS: ANTI-Xa, UFH(UnfractionatedHep 0.22 IU/ml (0.3-0.7)
[2024-06-30] MEDS: DOXYCYCLINE HYCLATE 100 MG in DEXTROSE 5% MINI-B 100 ML IV SCH (03:51)
[2024-06-30] MEDS: CETIRIZINE HCL 10 MG TABLET PO ONE (04:04)
[2024-06-30 06:08] LABS: ANTI-Xa, UFH(UnfractionatedHep 0.26 IU/ml (0.3-0.7)
[2024-06-30 07:56] VITALS: TEMP 97.9
[2024-06-30] MEDS: VENLAFAXINE HCL XR 75 MG CAPXR PO SCH (08:51)
[2024-06-30] MEDS: DULoxetine HCL 60 MG CAP PO SCH (08:51)
[2024-06-30] MEDS: ASPIRIN 81 MG ECTAB PO SCH (08:51)
[2024-06-30] MEDS: PANTOprazole 40 MG TAB PO SCH (08:52)
[2024-06-30] MEDS: HEPARIN DRIP- STOP ORDER SCH (08:52)
[2024-06-30] MEDS: FOLIC ACID 1 MG TAB PO SCH (08:54)
[2024-06-30] MEDS: FLUTICASONE/VILANTEROL 200/25MCG 14 PUFFS/INHALER INH SCH (08:54)
[2024-06-30] MEDS: lisinopril 5 MG TAB PO SCH (08:54)
[2024-06-30] MEDS ORDERED: APIXABAN 5 MG TABLET PO SCH (09:00)
[2024-06-30] MEDS: APIXABAN 5 MG TABLET PO ONE (10:37)
--- NOTE | 2024-06-30 11:09 | Cardiology Progress Note ---
Date of Service June 30, 2024 Assessment & Plan (1) Paroxysmal atrial fibrillation: Plan Paroxysmal AFIB -chadsvasc score 2 (age, HTN) Moderate mitral regurgitation Tobacco use COPD HTN -Patient initially with AFIB RVR converted to NSR with single dose of IV diltiazem -Now with frequent ectopy, PVCs and PACs -Echocardiogram with preserved EF and normal LV systolic function -Patient remains asymptomatic. -Troponin initially elevated, trending down per repeat. -Remains chest pain free, no acute changes on repeat EKG -Likely secondary to demand ischemia. -Patient would benefit from outpatient ischemic work-up given risk factors -Continue metoprolol tartrate 12.5mg BID -Anticoagulated with Eliquis 5mg BID. Case discussed with Dr. Duran. I spent a total of 35 minutes on the date of service in preparation, delivery, and documentation of the care provided to this patient, excluding any time spent in the performance of separately billed services. Citlalli Givens PA-C Department of Cardiology, [facility] This chart was completed in part utilizing Speech Voice Recognition Software. Grammatical errors, random word insertions, pronoun errors, and incomplete sentences are an occasional consequence of this system due to software limitations, ambient noise, and hardware issues. Any formal questions or concerns about the content, text, or information contained within the body of this dictation should be directly addressed to the provider for clarification. Admission and Anticipated Discharge Date Admission Date: June 29, 2024 Supervising Physician Co-Signing Physician Notes I have reviewed the advance practitioner's documentation, and I agree with, and take responsibility for the plan of care. I have personally performed a history and physical examination on the patient. I spent a total of 40 minutes on the date of service in preparation, delivery, and documentation of the care provided to this patient, excluding any time spent in the performance of separately billed service. 74-year-old male with past medical history of seronegative rheumatoid arthritis rheumatology's office and was noted to be tachycardic and was sent to the emergency room. He was found to be in atrial fibrillation with rapid ventricular response and he spontaneously converted back to sinus rhythm and received a single dose of IV diltiazem. No acute ischemic changes noted on his ECG. On telemetry he did have premature ventricular contractions and premature atrial contractions. His troponins were elevated at 175 peaked at 629 and down trended to 268. During all this patient had absolutely no symptoms. He denies chest pain, dyspnea, apnea, PND, rectum edema, palpitations, or syncope. He st ates that a few days ago he was hiking and walks multiple miles without any exertional symptoms. Today he was able to ambulate without any exertional chest pain or dyspnea. He remains in sinus rhythm. Repeat EKG done this morning showed sinus rhythm with no acute ischemic changes with premature ventricular contractions. Had a long discussion with patient about his elevated troponins and paroxysmal atrial fibrillation. He had an echocardiogram done which showed LVEF of 60 to 65% with no wall motion abnormality, normal RV size and systolic function, and Moderate MR. I discussed with patient that his elevated troponin or possibly from demand ischemia however he will need an ischemic evaluation. Patient is adamant that he would like to be discharged home today as he would like to take care of his dogs and does not want to stay in the hospital for any further workup. He is agreeable for an outpatient follow-up for further ischemic evaluation. Patient has already been started on Eliquis, metoprolol and aspirin, would recommend the addition of Lipitor 40 mg p.o. daily and a 1 week follow-up with cardiology. patient again advised if he develops any symptoms to immediately come back to the emergency room. Subjective Patient reports feeling well today. He has no complaints. Voiced he would like to go home take care for his dogs. Denies dizziness, lightheadedness, syncope, chest pain. Review of Systems Review of Systems: All systems reviewed & are unremarkable except as noted in HPI & below Physical Exam Constitutional: WD/WN, vitals as above Eyes: PERRL, conjunctivae normal, anicteric sclerae Respiratory: normal respiratory effort, lungs clear to auscultation Auscultation: no crackles, no rales and no wheezes Cardiovascular: Rate/Rhythm: regular rate and + irregularly irregular Heart Sounds: normal S1 and normal S2; no murmur Vessels: no JVD Extremities: no edema Gastrointestinal (Abdomen): normal bowel sounds, soft, nontender, no hepatosplenomegaly Musculoskeletal: no cyanosis or clubbing, extremities motor strength 5/5 Skin: no rashes, warm and dry Psychiatric: A+Ox3, euthymic affect Results & Data Vital Signs (Past 12 Hours) Vital Signs Temp Pulse Pulse Resp BP Pulse Ox O2 Del Method 06/30/24 07:55 36.6 C 69 18 152/84 H 94 Room Air 06/30/24 03:00 36.7 C 68 18 125/81 96 Room Air 06/30/24 00:12 72 Laboratory Results Cardiac Enzymes 06/29/24 06/29/24 06/29/24 Range/Units 12:00 13:42 22:46 AST 14 (13-39) U/L Troponin I High Sens 31.5 H 173.8 H* D 629.7 H* D (0-20) pg/ml 06/30/24 Range/Units 05:20 AST (13-39) U/L Troponin I High Sens 369.9 H* D (0-20) pg/ml Coagulation 06/29/24 06/29/24 Range/Units 12:00 19:46 PT Cancelled 11.2 CBC 06/29/24 Range/Units 12:00 WBC 11.73 H (4.8-10.8) K/ul RBC 4.34 L (4.70-6.10) M/uL Hgb 12.7 L (14.0-18.0) g/dl Hct 38.8 L (42.0-52.0) % Plt Count 257 (130-400) K/uL Neut # (Auto) 8.59 H (1.40-6.50) K/uL Lymph # (Auto) 1.81 (1.20-3.40) K/uL [place] # (Auto) 0.97 H (0.11-0.59) K/uL Eos # (Auto) 0.29 (0.00-0.50) K/uL Baso # (Auto) 0.03 (0.00-0.20) K/uL Comprehensive Metabolic Panel 06/29/24 Range/Units 12:00 Sodium 138 (136-145) mmol/L Potassium 4.4 (3.5-5.1) mmol/L Chloride 107 (98-107) mmol/L Carbon Dioxide 26 (21-32) mmol/L BUN 10 (6-23) mg/dl Creatinine 0.82 (0.6-1.4) mg/dl Glucose 112 H (70-99(Fasting)) mg/dl Calcium 9.1 (8.6-10.3) mg/dl AST 14 (13-39) U/L ALT 9 (7-52) U/L Alkaline Phosphatase 72 (34-104) U/L Total Protein 5.6 L (6.0-8.3) gm/dl Albumin 3.5 (3.4-5.0) gm/dl Intake and Output 06/29/24 06/30/24 06/30/24 22:59 06:59 14:59 Intake Total 370.3 / 2837.100 684.250 / 2837.100 43.383 / 43.383 Balance 370.3 / 2837.100 684.250 / 2837.100 43.383 / 43.383 Intake: IV 130.3 / 2237.100 324.250 / 2237.100 43.383 / 43.383 Doxycycline Hyclate 100 mg In 100 / 200 100 / 200 Dextrose 5% Mini-B 100 ml @ 50 mls/hr IV Q12H [facility] Rx#:[id number] Heparin Sodium/Dextrose 25,000 30.3 / 254.550 224.250 / 254.550 43.383 / 43.383 units In 500 ml @ 900 UNITS/HR 18 mls/hr IV .Q24H [facility] Rx#: [id number] Oral 240 / 600 360 / 600 Other: Weight 77.7 kg 77.1 kg Weight Measurement Method Standing Scale Built in [facility] Diagnostic Findings EKG 06/30/2024 SR with PVCs in bigeminy 69bpm ECHO 06/29/2024 SR with frequent ectopy, bigeminy LV normal size mild concentric LVH LV wall motion is normal LVEF 60-65% Grade I diastolic dysfunction mild aortic valve sclerosis without aortic stenosis moderate mitral regurgitation mild regurgitant jet is eccentrically directed trace tricuspid regurgitation doppler findings do not suggest pulmonary HTN Left atrium mildly dilated
[2024-06-30 11:24] VITALS: BP 139/83; PULSE 60; O2SAT 96
--- NOTE | 2024-06-30 13:16 | Discharge Summary ---
Date of Service June 30, 2024 Admission HPI Per Admitting Provider Eugenio is a 74-year-old male with a past medical history of rheumatoid arthritis, PMR, asthma, depression, hypertension, GERD who was seen for an acute visit by rheumatology for low back/hip discomfort gradually increasing over the last few months. While in the the office was noted to have A-fib with suspected RVR, in office blood pressure showed systolic as low 78/52 and patient was referred to the hospital by ambulance for treatment of A-fib with RVR. Presents on referral from rheumatology office for irregular heart rhythm with RVR. No prior history of A-fib. Had some arrythmia during a colonoscopy while in [facility]. THis was ~7 years ago. no other arrythemia No chest pain, no chest pressure, no syncope. 'May just a tad lightheaded when standing once today but no dizziness and I feel fine' Takes baby aspirin daily 81mg as primary prevention. No hx SD, CAD, or strokes No history of DM Hx HTN well controlled to borderline per pt, drops into a normal range as long as he is allowed to relax for 5-10 minutes prior to checking, no longed checks at home. takes lisinopril. Feels very fatigued in the morning, rescued a dog and gets him up earlier than he would like. Typically sleps 12-5pm. If he does get 8-9 hours of sleep he feels rested. NO snoring. No hx sleep apnea. Was at camp this past weekend, had multiple insect bites. Drinks alcohol over the weekend, none in the last 6 days. Medical History: Reviewed Medications: Reviewed. Took all meds this AM. Surgical History: Reviewed. Hx appendectomy, L knee replacement, cholecystectomy. Family history: Reviewed Allergies: Reviewed. Denies med allergies Social History: Drinks ETOH ~once a month, ~5 in a sitting if he does drink. Last drink Tuesday/Tuesday. Current smoker, 1/2ppd. Marijuana gummies intermittently which has replaced back pain medication. Works well for him, much better than opiods. Code Status:Full Admission Exam Per Admitting Provider General: A&Ox3. NAD. Cooperative. HEENT: Atraumatic, normocephalic. BESSY. EoM intact. Pulm: CTAB A&P. -wheezes, -rales, -rhonchi. Symmetrical chest rise. No increased work of breathing. No respiratory distress. Cardiac. Regular at time of assessment. -mrg Radial pulses intact and symmetrical. Abdominal: Nontender, nondistended, soft. BS present. Ext: no edema Principal Diagnosis Paroxysmal atrial fibrillation with rapid ventricular response Demand ischemia Lyme's disease Discharge Exam General: Awake, conversant Heart: S1, S2/regular rate and rhythm, no murmur rubs or gallops Lungs: Clear to auscultation bilaterally. Normal effort Abdomen: Soft/nontender/nondistended. No hepatosplenomegaly Extremities: No clubbing/cyanosis. No edema Behavior: Appropriate, cooperative Discharge Data Allergies Allergy/AdvReac Type Severity Reaction Status Date / Time taylor pepper [green pepper] Allergy Verified 06/29/24 10:30 quetiapine [From Seroquel] AdvReac incontenence Verified 06/29/24 10:30 urine red wine Allergy Uncoded 06/29/24 10:30 Consultations 06/29/24 12:33 ED Decision to Admit Stat 06/29/24 14:59 Consult Cardiology Routine Hospital Course (1) Atrial fibrillation with rapid ventricular response: Atrial fibrillation with RVR, converted to bigeminy First episode, no prior history of A-fib Drinks alcohol around once a month, was at a camp this past week and had about 5 drinks Tuesday/Tuesday, no alcohol since that time. No history of sleep a pnea. Has had Lyme disease in the past, which had been treated with doxycycline. Again was recently camping with multiple insect bites. No heart block, UT is not prolonged after conversion to sinus While in the ER and following metoprolol patient converted to sinus, alternating with intermittent PVCs and occasionally with bigeminy. Troponins peaked in the 600s. Cardiology cleared him for discharge. Plan is to do an ischemic workup outpatient. Patient will follow-up with PCP and cardiology outpatient Echo unremarkable Started on metoprolol tartrate twice daily [id number] 2 points, patient was started on Eliquis He would like to follow-up with [facility] cardiology. Their office will call him. (2) Lyme disease: Lyme disease Patient with past history of Lyme, recently camping with multiple insect bites Lyme screen equivocal. IgG likely to be positive due to past infection, IgM is + suggesting recent/recurrent infection Given equivocal acute screen will start on doxycycline every 12 hours. UT is not prolonged, Rocephin deferred Will discharge the patient on p.o. doxycycline to complete a 10-day course (3) Degenerative disc disease: Low back pain Patient with worsening pain when walking, stooped posture, and increasing bilateral hip pain. Notes that he was able to walk several miles while at camp and actually felt good and without pain. No lower extremity weakness. No sensory deficits No indication for emergent MRI at time of admit No saddle anesthesia, bowel/bladder incontinence/retention, and robust 5/5 strength on exam. May obtain MRI routine, or as outpt (4) Rheumatoid arthritis: Rheumatoid arthritis Has been off methotrexate for 2 to 3 weeks, this remains held on admission Back pain is separate from this and will be evaluated as above. May continue outpatient follow-up for his rheumatoid Celebrex may need to be held, now that the patient is on Eliquis Plan Chronic stable issues Depression: Continue Effexor/Trintellix Hyperlipidemia: Diet controlled BPH with nocturia: Continue home medicines Asthma: No acute exacerbation, continue inhalers Discharge to home today Total Time Total Time Spent Total Time Spent (In Minutes): 35 Discharge Plan Discharge Items Patient Disposition: Home - Self-Care Reason For Visit: AFIB RVR, LYME Discharge Diagnosis: Paroxysmal atrial fibrillation with rapid ventricular response Demand ischemia Lyme's disease Activity: Resume your previous activity Non-emergency contact: Primary Care Provider Call non-emergency contact if: you have any medication questions and your sympto ms worsen Follow-up/Referrals: Nikolas Chaparro MD [Primary Care Provider] - 07/06/24 9:00 am (Hospital follow up scheduled July 06 a 9:00 with IGNACIO Lee) Patrick Hernandes MD [Physician] - Diet: Heart Healthy Addtl Attending Provider Instructions: Advised to follow-up with PCP in 1 week You may need a stress test arranged for by your PCP or your industrial court magistrate outpatient Advised to follow-up with cardiology in 1 week (someone will call you with an appointment) Pending Studies at Discharge: No Stand-Alone Forms: My [employer], Smoking Cessation Medications and DC Order Prescriptions: New Eliquis 5 mg Tablet 5 mg PO BID 30 Days Qty: 60 0RF metoprolol tartrate 25 mg Tablet 12.5 mg PO BID 30 Days Qty: 30 0RF doxycycline monohydrate 100 mg capsule 100 mg PO BID 9 Days Qty: 18 0RF Continued folic acid 1 mg tablet 1 mg PO QAM Qty: 90 3RF Rx Instructions: otc, no fill history aspirin 81 mg tablet,delayed release (DR/EC) 81 mg PO DAILY Rx Instructions: otc albuterol sulfate [Ventolin HFA] 90 mcg/actuation HFA aerosol inhaler 2 puff INHALATION Q4H PRN (Reason: SOB) Qty: 3 3RF Rx Instructions: no fill history available fluticasone furoate 27.5 mcg/actuation spray,suspension 2 spray intranasal DAILY PRN (Reason: allergy symptoms) Rx Instructions: into each nostril sildenafil 100 mg tablet 100 mg PO DAILY PRN (Reason: sexual activity) Qty: 7 2RF Rx Instructions: No fill history available administer 30 minutes to 4 hours before activity duloxetine 60 mg capsule,delayed release(DR/EC) 60 mg PO DAILY Qty: 100 2RF venlafaxine 75 mg capsule,extended release 24hr 75 mg PO DAILY Qty: 100 3RF gabapentin 300 mg capsule 300 mg PO .in am and at HS Qty: 200 3RF celecoxib [Celebrex] 200 mg capsule 200 mg PO DAILY Qty: 100 3RF lisinopril 5 mg tablet 5 mg PO DAILY Qty: 100 3RF omeprazole 40 mg capsule,delayed release(DR/EC) 40 mg PO DAILY Qty: 100 3RF terazosin 5 mg capsule 5 mg PO HS Qty: 100 2RF oxybutynin chloride 10 mg tablet extended release 24hr 10 mg PO PM Qty: 100 2RF methotrexate sodium 2.5 mg tablet 15 mg PO UD Rx Instructions: 15 mg po q7d last filled 02/13/24 for 84 day supply hydroxychloroquine 200 mg tablet 200 mg PO UD Rx Instructions: 200 mg po daily last filed 03/21/24 for 90 day supply budesonide-formoterol [Symbicort] 160-4.5 mcg/actuation HFA aerosol inhaler 2 puff inhalation UD Rx Instructions: 2 puff inhalation bid last filled 01/24/24 for 60 day supply needs to be brand per insurance for coverage. Discharge Orders: Discharge Order (Routine); Ordered 06/30/24 Ordered By: Yareli Reddy Admission Data Admit Date/Time: 06/29/24 15:02 Attending Provider: Yareli Reddy Admit Provider: Sergio Hinkle Primary Care Provider: Nikolas Chaparro Other Providers: Sergio Hinkle; Patrick Hernandes
--- NOTE | 2024-06-30 14:51 | Electrocardiogram Report ---
Test Reason : Blood Pressure : */* mmHG Vent. Rate : 69 BPM Atrial Rate : 69 BPM P-R Int : 162 ms QRS Dur : 80 ms QT Int : 412 ms P-R-T Axes : 36 -14 45 degrees QTcB Int : 441 ms Sinus rhythm with frequent Premature ventricular complexes in a pattern of bigeminy Possible Old Inferior infarct Abnormal ECG When compared with ECG of 29-Jun-2024 12:54, Premature atrial complexes are no longer Present Borderline Criteria for Inferior infarct now present Confirmed by Da Hylton ([id number]) on 06/30/2024 2:50:57 PM Referred By: REFERRED SELF Confirmed By: Da Hylton
== END 2024-06-30 14:00 | disposition home or self-care (01) ==
LOC: ED 11:52 → 2S 15:02 → INTOOBSV 15:02 → SUATTDRO 15:02 → 2S 16:52